=== PATIENT | female | born 1990 | race Caucasian/White ===

== ENCOUNTER 2018-03-26 12:02 | Day surgery (SDC) | payer OTHER ==
[2018-03-25 13:42] VITALS: BMI 31.8
[2018-03-26] VITALS (10 sets, daily range): BP systolic 112–137; BP diastolic 62–78; PULSE 60–88; RESP 16–27; Ht 165.1 cm; Wt 83.3 kg
[~2018-03-26] VITALS: Ht 165.1 cm; Wt 83.3 kg
[~2018-03-26 12:02] MED LIST: CEFAZOLIN 2 GM/50 ML (PMX) 50 ML IVPB ONE
[2018-03-26] MEDS ORDERED: POLYMYXIN/BACITRACIN 1L IRRIG ONE (13:43)
[2018-03-26] MEDS ORDERED: BUPIVACAINE 0.5% (SDV) 30 ML INJ ONE (13:43)
--- NOTE | 2018-03-26 14:01 | PREAC ---
Date/Time of Note Date/Time of Note DATE: 03/26/18 TIME: 14:00 Anesthesia Eval and Record Evaluation Time Pre-Procedure Interview DATE: 03/26/18 TIME: 14:00 Age 27 Sex female NPO: 8 hrs Preoperative diagnosis tendon injury Planned procedure tendon repair Past Medical History Past Medical History: None Surgery & Anesthesia Issues No known issue Meds Anticoagulation: No Beta Jared within 24 hr: No Reason Beta Jared not given: Pt. not on B-Jared No Active Prescriptions or Reported Meds Meds reviewed: Yes Allergies Coded Allergies: No Known Allergy (Unverified , 03/26/18) Allergies Reviewed: Yes Labs/Studies Labs Reviewed: Reviewed by anesthesiologist test: Negative Pre-procedure Exam Last vitals Vital Signs Date Temp Pulse Resp B/P (MAP) Pulse Ox O2 O2 Flow FiO2 Time Delivery Rate 03/26/18 98.2 67 18 112/74 100 Room Air 12:50 (87) Airway: Adequate mouth opening, Adequate thyromental dist Mallampati: Mallampati II Teeth: Normal Lung: Normal Heart: Normal ASA Physical Status ASA physical status: 1 Emergency: None Pre-operative Attestations Prior to commencing anesthesia and surgery, the patient was re-evaluated, there was verification of: *The patient's identity *The results of appropriate recent lab work and preoperative vital signs *The above evaluation not changing prior to induction *Anesthetic plan, risk benefits, alternative and complications discussed with patient/family; questions answered; patient/family understands, accepts and wishes to proceed. ROWDY GAMEZ DO Mar 26, 2018 14:01
[2018-03-26] MEDS ORDERED: FENTAnyl 50 MCG/ML VIAL ONE ×2 (14:10→14:42)
[2018-03-26] MEDS ORDERED: MIDAZOLAM 1 MG/ML 2 ML INJ ONE ×2 (14:10→14:16)
[2018-03-26] MEDS ORDERED: PROPOFOL 20 ML ONE (14:11)
[2018-03-26] MEDS ORDERED: LIDOCAINE 1% (MDV) 20 ML INJ ONE (14:11)
[2018-03-26] MEDS ORDERED: ETOMIDATE 20 MG INJ ONE (14:11)
[2018-03-26] MEDS ORDERED: ROPIVACAINE 0.5 % 30 ML VIAL ONE (14:13)
[2018-03-26] MEDS ORDERED: DEXAMETHASONE 4 MG/ML 5 ML INJ ONE (14:13)
[2018-03-26] MEDS ORDERED: CEFAZOLIN 1 GM INJ ONE (14:40)
--- NOTE | 2018-03-26 15:24 | HPN ---
Date/Time of Note Date/Time of Note DATE: 03/26/18 TIME: 15:23 Interval H&P Admission Note Pt. seen H&P reviewed: No system changes AUBREE VARMA DPM Mar 26, 2018 15:24
--- NOTE | 2018-03-26 15:28 | OPPN ---
Date/Time of Note Date/Time of Note DATE: 03/26/18 TIME: 15:27 Operative Report Preoperative Diagnosis Left peroneal tendon rupture Left ankle pain Postoperative Diagnosis Left peroneal tendon rupture Left ankle pain Operation/Procedure Performed Surgical repair of ruptured peroneal tendon of the left foot Surgeon see signature line law office assistant None Anesthesia: general Estimated blood loss: minimal Transfusion Required none Specimen None Grafts/Implants none Complications none AUBREE VARMA DPM Mar 26, 2018 15:28
[2018-03-26] MEDS ORDERED: HYDROmorphONE 1 MG/5 ML IV SYRINGE IV PRN ×2 (15:30)
--- NOTE | 2018-03-26 15:38 | OPR ---
Date/Time of Note Date/Time of Note DATE: 03/26/18 TIME: 15:38 Operative Report Procedure Date: Mar 26, 2018 Preoperative Diagnosis Ruptured peroneal tendon of the left foot Left foot pain Postoperative Diagnosis Ruptured peroneal tendon of the left foot Left foot pain Operation/Procedure Performed Surgical repair of ruptured left peroneal tendon Surgeon see signature line Hands Hanger None Anesthesia Type: general Estimated Blood Loss: minimal Transfusion none Specimen None Grafts/Implants none Tubes/Drains None Complications none Pt Condition Post Procedure: stable Disposition: PACU Indications This is a pleasant 27-year-old female patient who has sustained a rupture of the peroneal tendon on the left foot. Recommendation was made for surgical repair secondary to continued chronic pain despite nonsurgical treatment attempts such as pain medication, NSAIDs, shoe gear modification, activity modification etc. Risks and complications of this type of surgery was discussed with patient in great detail. Risks and complications include, but are not limited to, postop pain, postoperative infection, chronic pain and disability, failure of surgery to correct the problem, need for additional surgical procedures, malunion, delayed union, nonunion, wound infection, hardware failure, failure of implants, allergic reactions to suture material, deep venous thrombosis, limb loss, loss of life. Patient acknowledges understanding of the risks and complications discussed and agrees to the procedure. An informed consent was signed, obtained and placed in the chart. No guarantee or warranty was given or implied as to the outcome of the procedure either in verbal and written form. Procedure Description The patient was brought into the operating room and was placed on the operating table in the supine position. A thigh tourniquet was applied to the left thigh. Patient was placed under general anesthesia. Left lower extremity was scrubbed, prepped and draped in the usual aseptic manner. An Esmarch bandage was utilized to exsanguinate the left lower extremity and the thigh tourniquet was inflated to 250 mm of pressure. Attention was directed to the lateral aspect of the left foot. An incision was made along the peroneal tendons using a #10 blade. Bleeders were cauterized as necessary. Careful deep dissection was made through the subcutaneous layer into the posterior distal aspect of the lateral malleolus. Peroneal retinaculum was identified and transected using a #15 blade. Proteus longus and brevis tendons were identified. There was a longitudinal tear of the Proteus brevis tendon. This was repaired using 2-0 Ethibond suture. The wound was flushed with copious muscle sterile normal saline. The peroneal retinaculum was reapproximated using 3-0 Vicryl suture. A Synthes placental tissue was applied over the peroneal tendons. Subcutaneous layer was closed using 3-0 Vicryl suture and the skin was closed using 4-0 Monocryl in subcuticular stitch pattern. Steri-Strips were applied. Sterile dressing was applied. Thigh tourniquet was deflated at this time and prompt hyperemic response was noted to the digits of the left foot. Popliteal block was applied by the anesthesiologist. Patient tolerated procedure and anesthesia well. She was transferred to the recovery room with vital signs stable and vascular status intact to the left lower extremity. Patient will be discharged home after postoperative monitoring. Patient is to remain nonweightbearing on the left foot. Postoperative orders were written. Prescription was submitted to patient's pharmacy electronically. Patient will be followed in the office in 1 week. AUBREE VARMA DPM Mar 26, 2018 15:38
== END 2018-03-26 16:45 | disposition home or self-care (01) ==
LOC: SDS 12:02
PROVIDERS: ATTEND Podiatrist Foot & Ankle Surgery
DX: S86.312A Strain of muscle(s) and tendon(s) of peroneal muscle group at lower leg level, left leg, initial encounter (principal); X58.XXXA Exposure to other specified factors, initial encounter
CPT/HCPCS: 28200; 84703; J0690; J2250; J2795; J3010; Z7512; Z7610; J1100